=== PATIENT | male | born 1975 | race American Indian/Alaskan Native ===

== ENCOUNTER 2018-07-15 12:44 | Emergency (ER) | payer BC ==
[2018-07-15 12:45] VITALS: BMI 22.7
[2018-07-15 12:57] VITALS: BP 129/84; PULSE 68; RESP 18; TEMP 97.3; O2SAT 100
[2018-07-15] MEDS ORDERED: Lidocaine 5% Patch TD STA (13:13)
--- NOTE | 2018-07-15 14:23 | ED PDOC ---
Arrival/HPI - General Chief Complaint: Upper Extremity Problem/Injury Time Seen by Provider: 07/15/18 12:54 Historian: Patient - History of Present Illness Narrative History of Present Illness (Text): 42 y/o male with no significant PMH presents to the ED c/o left sided neck pain x 3 months. The pain occasionally radiates down his left arm with associated paresthesias to finger tips. Sensation is relieved by lifting his left arm above his head. 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 Has not taken any medication for pain. Denies fever, chills, headache, vision changes, photophobia, weakness, numbness, leg pain, back pain, nausea, vomiting, abdominal pain, facial droop, chest pain, SOB, or any other associated symptoms. Past Medical History - Provider Review Nursing Documentation Reviewed: Yes - Infectious Disease Hx of Infectious Diseases: None - Tetanus Immunization Tetanus Immunization: Unknown - Past Medical History Past Medical History: No Previous - Cardiac Hx Heart Murmur: Yes - Musculoskeletal/Rheumatological Hx Falls: No - Psychiatric Hx Psychophysiologic Disorder: No Hx Anxiety: No Hx Bipolar Disorder: No Hx Depression: No Hx Emotional Abuse: No Hx Hallucinations: No Hx Panic Disorder: No Hx Post Traumatic Stress Disorder: No Hx Psychosis: No Hx Physical Abuse: No Hx Schizophrenia: No Hx Sexual Abuse: No Hx Substance Use: Yes - Past Surgical History Past Surgical History: No Previous - Anesthesia Hx Anesthesia: No Hx Anesthesia Reactions: No Hx Malignant Hyperthermia: No - Suicidal Assessment Feels Threatened In Home Enviroment: No Family/Social History - Physician Review Nursing Documentation Reviewed: Yes Family/Social History: No Known Family HX Smoking Status: Heavy Smoker > 10 Cigarettes Daily Hx Alcohol Use: Yes Hx Substance Use: Yes Substance used: marijuana Allergies/Home Meds Allergies/Adverse Reactions: Allergies No Known Allergies Allergy (Verified 08/14/15 22:48) Review of Systems - Review of Systems Constitutional: Normal. absent: Fevers Respiratory: Normal. absent: SOB, Cough Cardiovascular: Normal. absent: Chest Pain, Palpitations Gastrointestinal: Normal. absent: Abdominal Pain, Nausea, Vomiting Musculoskeletal: Neck Pain, Other (left arm pain). absent: Back Pain Skin: Normal Neurological: Other (paresthesias left arm). absent: Headache, Dizziness Physical Exam Vital Signs Reviewed: Yes Vital Signs Temp Pulse Resp BP Pulse Ox 07/15/18 12:57 97.3 F L 68 18 129/84 100 Temperature: Afebrile Blood Pressure: Normal Pulse: Regular Respiratory Rate: Normal Appearance: Positive for: Well-Appearing, Non-Toxic, Comfortable Pain Distress: None Mental Status: Positive for: Alert and Oriented X 3 - Systems Exam Head: Present: Atraumatic, Normocephalic Pupils: Present: PERRL Extroacular Muscles: Present: EOMI Conjunctiva: Present: Normal Mouth: Present: Moist Mucous Membranes Neck: Present: Normal Range of Motion, Paraspinal Tenderness (left cervical and anterior trapezius), Other (muscle spasm to left cervical and anterior trapezius). No: Meningeal Signs, MIDLINE TENDERNESS Respiratory/Chest: Present: Clear to Auscultation Cardiovascular: Present: Regular Rate and Rhythm Upper Extremity: Present: Normal Inspection, Normal ROM, Neurovascularly Intact, Capillary Refill < 2s. No: Temperature Abnormalties Lower Extremity: Present: Normal Inspection, NORMAL PULSES, Normal ROM, Neurovascularly Intact, Capillary Refill < 2 s. No: CALF TENDERNESS, Tenderness, Swelling, Temperature Abnormalties Neurological: Present: GCS=15, CN II-XII Intact, Speech Normal, Motor Func Grossly Intact, Normal Sensory Function, Normal Cerebellar Funct, Gait Normal, Other (strength 5/5 in bilateral extremities, sensation intact and equal bilaterally) Skin: Present: Warm, Dry, Normal Color Psychiatric: Present: Alert, Oriented x 3 Medical Decision Making ED Course and Treatment: Initial Plan: * Cervical Spine XR * Toradol * Lidoderm Pt reports improvement in symptoms with medication. Xray positive for degenerative disease at C5-6. Advised neurology, orthopedic, and PMD followup. Diagnostic testing results and plan of care discussed with patient. Strict instructions given regarding prescription use, importance of followup, and signs/symptoms to return to ER including worsening pain, headache, dizziness, weakness, or any other new/worsening symptoms. Pt verbalized understanding of discussion. Patient is A&Ox3, ambulating with steady gait, with vital signs stable for discharge. - RAD Interpretation Narrative RAD Interpretations (Text): 07/15/18 14:27 Cervical Spine XR: FINDINGS: BONES: Alignment maintained. No fracture. Dens Intact. DISC SPACES: There is disc degeneration at C5-6 SOFT TISSUES: Normal. No prevertebral soft tissue swelling. OTHER FINDINGS: None. IMPRESSION: Disc degeneration at C5-6 Radiology Orders: 07/15/18 13:12 CERVICAL SPINE >18YR W/OBLIQUE [RAD] Stat - Medication Orders Current Medication Orders: Discontinued Medications Ibuprofen (Motrin Tab) 600 mg PO STAT STA Stop: 07/15/18 13:13 Last Admin: 07/15/18 13:37 Dose: 600 mg MAR Pain/Vitals Document 07/15/18 13:37 MA (Rec: 07/15/18 13:37 [place] [id number]) Pain Reassessment Is This A Pain ReAssessment? Yes Sleep Is patient sleeping during reassessment? No Presence of Pain Presence of Pain Yes Pain Scale Used Protocol: PSCALES Pain Scale Used Numeric Location Left, Right or Bilateral Left Pain Location Body Site Shoulder Description Sharp Throbbing Intensity 6 Scale Used Numeric Pain Behavior Grasping Site Rubbing Site Lidocaine (Lidoderm) 1 ea TD STAT STA Stop: 07/15/18 13:14 Last Admin: 07/15/18 13:37 Dose: 1 ea MAR Transdermal Patch Site Document 07/15/18 13:37 MA (Rec: 07/15/18 13:37 MA [id number]) Transdermal Patch Site Transdermal Patch Site Left Shoulder Disposition/Present on Arrival - Present on Arrival Any Indicators Present on Arrival: No History of DVT/PE: No History of Uncontrolled Diabetes: No Urinary Catheter: No History of Decub. Ulcer: No History Surgical Site Infection Following: None - Disposition Have Diagnosis and Disposition been Completed?: Yes Diagnosis: Cervical radiculopathy Disposition: HOME/ ROUTINE Disposition Time: 14:20 Patient Plan: Discharge Condition: IMPROVED Discharge Instructions (ExitCare): Radiculopathy (DC) Additional Instructions: Ibuprofen every 8 hours as needed for pain, take with food Flexeril every night before bed, do not take before driving Followup with neurology and orthopedics within 2 days Followup with primary within 2 days Return to ER with any new/worsening symptoms Prescriptions: Cyclobenzaprine [Cyclobenzaprine HCl] 10 mg PO HS #7 tab Ibuprofen [Motrin Tab] 600 mg PO Q8 #30 tab Referrals: Viet Urias MD [Staff Provider] - Follow up with primary Stephen Joshi III, MD [Medical Doctor] - Follow up with primary Forms: [employer] (Georgian), WORK NOTE
--- NOTE | 2018-07-15 14:26 | RAD ---
Date of service: 07/15/2018 PROCEDURE: Cervical Spine Radiographs. HISTORY: Pain. COMPARISON: None available. TECHNIQUE: 3 views obtained. FINDINGS: BONES: Alignment maintained. No fracture. Dens Intact. DISC SPACES: There is disc degeneration at C5-6 SOFT TISSUES: Normal. No prevertebral soft tissue swelling. OTHER FINDINGS: None. IMPRESSION: Disc degeneration at C5-6
== END 2018-07-15 14:32 | disposition home or self-care (01) ==
LOC: ED 12:44
DX: M54.12 Radiculopathy, cervical region (principal); F17.210 Nicotine dependence, cigarettes, uncomplicated